=== PATIENT | female | born 1945 | race Caucasian/White ===

== ENCOUNTER 2021-04-08 12:42 | Inpatient (IN) | payer OTHER ==
[~2021-04-08] VITALS: Ht 165.1 cm; Wt 67.8 kg
--- NOTE | 2021-04-08 13:06 | NUR ---
TRIAGE: PT GOING TO XRAY FROPM TRIAGE AND THEN GRINDING ROOM INSPECTOR WILL PLACE PT IN ROOM 10.
[2021-04-08 13:43] LABS: BASOPHILS % (AUTO) 0 % (0-1); EOSINOPHILS % (AUTO) 0 % (1-7); LYMPHOCYTES % (AUTO) 14 % (22-44); MEAN CORPUSCULAR HEMOGLOBIN 31.3 pg (27.0-34.8); MEAN CORPUSCULAR HGB CONC 34.9 g/dL (32.4-35.8); MEAN PLATELET VOLUME 7.3 fL (7.4-10.4); MONOCYTES % (AUTO) 10 % (2-9); NEUTROPHILS % (AUTO) 76 % (42-75); PLATELET COUNT 181 x10^3/uL (130-400); RED BLOOD COUNT 4.64 x10^6/uL (3.82-5.3); RED CELL DISTRIBUTION WIDTH 14.1 % (9.6-15.2)
[2021-04-08 13:53] LABS: ALBUMIN 3.6 g/dL (3.4-5.0); ANION GAP 6 mmol/L (5-15); CALCIUM 9.4 mg/dL (8.5-10.1); CHLORIDE 107 mmol/L (98-107)
[2021-04-08 13:59] LABS: ALANINE AMINOTRANSFERASE 26 U/L (12-78); ALKALINE PHOSPHATASE 77 U/L (45-117); BILIRUBIN,TOTAL 0.9 mg/dL (0.2-1.0); CREATININE 0.96 mg/dL (0.55-1.02); TOTAL PROTEIN 6.9 g/dL (6.4-8.2); TROPONIN I < 0.015 ng/mL (0.000-0.045)
--- NOTE | 2021-04-08 15:10 | NUR ---
PT UPRIGHT ON GURNEY AWAKE & RESTLESS AT TIMES BUT REDIRECTABLE & MOSTLY COOPERATIVE, REFUSES VS ("I DON'T WANT THAT STUFF ON ME, I NEED TO GO HOME BECAUSE I DON'T EVEN KNOW WHY I'M HERE."), PT CAN'T TELL WHAT HER ADDRESS IS WHEN ASKED, COMFORT MEASURES PROVIDED, CALL LIGHT WITHIN REACH.
[2021-04-08 15:15] LABS: MICROSCOPIC INDICATED
--- NOTE | 2021-04-08 15:54 | NUR ---
PT STATES SON'S NAME IS TAMI HUTCHISON, [employer] FI[employer] REPORTS THE NURSING RESIDENT ADDRESS [address] IN [place].
--- NOTE | 2021-04-08 15:55 | NUR ---
SON TAMI HUTCHISON [phone] SPOKE WITH [facility] CUEVAS- PT SON TO ARRIVE SHORTLY, [facility] ABLE TO PROVIDE SOME PMHx & SPOKE WITH DR BALLARD REGARDING POC.
--- NOTE | 2021-04-08 16:01 | NUR ---
PT REMAINS UPRIGHT ON GURNEY AWAKE & RESTLESS AT TIMES BUT STILL REDIRECTABLE & COOPERATIVE, REFUSED VS, NO NEEDS AT THIS TIME, CALL LIGHT WITHIN REACH.
[2021-04-08] MEDS ORDERED: SEROQUEL (16:22)
[2021-04-08] MEDS ORDERED: TRAZADONE (16:22)
[2021-04-08] MEDS ORDERED: SERTRALINE (16:22)
[2021-04-08] MEDS ORDERED: ONDANSETRON ODT 4 MG PO PRN (16:30)
[2021-04-08] MEDS ORDERED: ACETAMINOPHEN 325 MG TABLET PO PRN (16:30)
[2021-04-08] MEDS ORDERED: POLYETHYLENE GLYCOL 17 GM PACKET PO PRN (16:30)
[2021-04-08] MEDS ORDERED: ONDANSETRON 2MG/ML, 2ML IVPush PRN (16:30)
[2021-04-08] MEDS ORDERED: DOCUSATE 100 MG CAPSULE PO PRN (16:30)
[2021-04-08] MEDS ORDERED: BISACODYL 10 MG SUPP PR PRN (16:30)
[2021-04-08] MEDS ORDERED: hydrALAzine 20 MG/ML, 1ML IVPush PRN (16:30)
[2021-04-08] MEDS ORDERED: PROMETHAZINE 25 MG/ML, 1ML IM PRN (16:30)
--- NOTE | 2021-04-08 17:05 | NUR ---
PT UPRIGHT ON GURNEY AWAKE, RESTLESS AT TIMES BUT REDIRECTABLE & COOPERATIVE, REFUSED VS, COMFORT MEASURES PROVIDED, CALL LIGHT WITHIN REACH.
[2021-04-08] MEDS: SODIUM CHLORIDE 0.9% 1,000 ML IV SCH (17:49)
[2021-04-08] MEDS: CEFTRIAXONE 1,000 MG in DEXTROSE 5% 50 ML IVPB SCH (17:51)
--- NOTE | 2021-04-08 18:13 | NUR ---
Pt to be admitted to MEDICAL, room 375. Report called to RAY.
[2021-04-08 20:09] VITALS: BP 165/82
[2021-04-08] MEDS: ENOXAPARIN 40 MG/0.4 ML SQ SCH (22:08)
[2021-04-09 01:41] VITALS: BP 166/81
[2021-04-09] MEDS: SODIUM CHLORIDE 0.9% 1,000 ML IV SCH (03:57)
[2021-04-09 07:05] VITALS: BP 157/81
[2021-04-09 07:46] LABS: ALBUMIN 3.1 g/dL (3.4-5.0); ANION GAP 8 mmol/L (5-15); BASOPHILS % (AUTO) 0 % (0-1); CHLORIDE 108 mmol/L (98-107); EOSINOPHILS % (AUTO) 0 % (1-7); LYMPHOCYTES % (AUTO) 17 % (22-44); MEAN CORPUSCULAR HGB CONC 35.5 g/dL (32.4-35.8); MEAN PLATELET VOLUME 7.2 fL (7.4-10.4); MONOCYTES % (AUTO) 9 % (2-9); NEUTROPHILS % (AUTO) 74 % (42-75); PLATELET COUNT 153 x10^3/uL (130-400); RED BLOOD COUNT 4.07 x10^6/uL (3.82-5.3); RED CELL DISTRIBUTION WIDTH 13.9 % (9.6-15.2)
[2021-04-09 07:55] LABS: ALANINE AMINOTRANSFERASE 21 U/L (12-78); ALKALINE PHOSPHATASE 66 U/L (45-117); BILIRUBIN,TOTAL 0.6 mg/dL (0.2-1.0); CHOL/HDL RATIO 3.8; CHOLESTEROL, TOTAL 165 mg/dL (140-239); CREATININE 0.86 mg/dL (0.55-1.02); HDL CHOL % 26 % (28-40); HDL CHOLESTEROL (DIRECT) 43 mg/dL (40-60); LDL CHOLESTEROL,CALCULATED 91 mg/dL (54-169); LDL/HDL RATIO 2.1 (0.5-3.0); TOTAL PROTEIN 5.8 g/dL (6.4-8.2); TRIGLYCERIDES 155 mg/dL (50-200); VLDL CHOLESTEROL 31 mg/dL (0-25)
[2021-04-09] MEDS: LOSARTAN 50MG TABLET PO SCH (10:08)
[2021-04-09 12:12] VITALS: BP 161/77
[2021-04-09] MEDS ORDERED: QUET100T4 PO (18:08)
[2021-04-09] MEDS ORDERED: TRAZ-96 PO (18:08)
[2021-04-09] MEDS ORDERED: BUSP15TA PO (18:08)
[2021-04-09] MEDS ORDERED: DESV100T PO (18:08)
[2021-04-09] MEDS: CEFTRIAXONE 1,000 MG in DEXTROSE 5% 50 ML IVPB SCH (18:50)
[2021-04-09 19:43] VITALS: BP 159/88
[2021-04-09] MEDS: ENOXAPARIN 40 MG/0.4 ML SQ SCH (19:58)
[2021-04-09] MEDS: BUSPIRONE 5 MG TABLET PO SCH (19:58)
[2021-04-09 20:25] LABS: AMPHETAMINE SCREEN, URINE Negative (Negative); BARBITURATE SCREEN, URINE Negative (Negative); BENZODIAZEPINE SCREEN, URINE Negative (Negative); CANNABINOID SCREEN, URINE Negative (Negative); COCAINE SCREEN, URINE Negative (Negative); METHADONE SCREEN, URINE Negative (Negative); OPIATE SCREEN, URINE Negative (Negative)
[2021-04-09] MEDS ORDERED: TRAZODONE 50MG TABLET PO PRN (21:00)
[2021-04-09] MEDS ORDERED: QUETIAPINE 100MG TABLET PO SCH (21:00)
[2021-04-10 07:03] LABS: CHLORIDE 112 mmol/L (98-107)
[2021-04-10 07:34] LABS: ANION GAP 7 mmol/L (5-15); CALCIUM 8.7 mg/dL (8.5-10.1); CREATININE 0.82 mg/dL (0.55-1.02)
[2021-04-10] MEDS: LOSARTAN 50MG TABLET PO SCH ×2 (09:00→10:32)
[2021-04-10] MEDS: BUSPIRONE 5 MG TABLET PO SCH ×3 (09:00→14:19)
[2021-04-10] MEDS ORDERED: POTASSIUM CHLORIDE 20 MEQ TAB.ER.PRT PO ONE (09:30)
[2021-04-10] MEDS ORDERED: CYANOCOBALAMIN 1,000 MCG/ML, 1ML IM SCH (10:00)
[2021-04-10] MEDS ORDERED: ERGOCALCIFEROL 50,000 UNIT CAPSULE PO SCH (14:00)
[2021-04-10] MEDS ORDERED: CYAN-27 PO (14:03)
[2021-04-10] MEDS ORDERED: ERGO500017 PO (14:03)
[2021-04-13] MEDS ORDERED: CYANOCOBALAMIN 1,000 MCG TABLET PO SCH (09:00)
== END 2021-04-10 14:55 | disposition home or self-care (01) | DRG 71 ==
LOC: ED 13:12 → EDIP 16:27 → 3N 18:42
PROVIDERS: ADMIT Internal Medicine; ATTEND Internal Medicine
DX: G93.40 Encephalopathy, unspecified (principal); N39.0 Urinary tract infection, site not specified; E53.8 Deficiency of other specified B group vitamins; E55.9 Vitamin D deficiency, unspecified; F41.9 Anxiety disorder, unspecified; Z85.41 Personal history of malignant neoplasm of cervix uteri; G30.9 Alzheimer's disease, unspecified; F02.80 Dementia in other diseases classified elsewhere, unspecified severity, without behavioral disturbance, psychotic disturbance, mood disturbance, and anxiety
CPT/HCPCS: 36415; 70450; 71045; 80048; 80053; 80061; 80307; 81001; 82140; 82306; 82607; 83036; 83690; 83735; 84100; 84443; 84484; 85025; 87086; 93005; 96372; 99285; G0378; J0696; J1650; J2405; J3420; J7030